=== PATIENT | female | born 1990 | race American Indian/Alaskan Native ===

== ENCOUNTER 2016-05-07 10:27 | Inpatient (IN) | payer MEDICAID ==
[2016-05-07] MEDS ORDERED: BRETHINE IVP PRN (10:31)
[2016-05-07] MEDS ORDERED: SUBLIMAZE IV PRN (10:31)
[2016-05-07] MEDS ORDERED: NARCAN 0.4 MG/1 ML IV PRN (10:31)
[2016-05-07] MEDS ORDERED: ePHEDrine SULFATE IV PRN ×2 (10:31→14:45)
[2016-05-07] MEDS ORDERED: MINERAL OIL PO PRN (10:31)
[2016-05-07] MEDS ORDERED: STADOL IV PRN (10:31)
[2016-05-07] MEDS ORDERED: BRETHINE SUB-Q PRN (10:31)
[2016-05-07] MEDS ORDERED: POLYCILLIN/NS 2 GM/100 ML 2 GM/100 ML BAG IV ONE (10:31)
[2016-05-07] MEDS ORDERED: ZOFRAN IV PRN ×2 (10:31→22:43)
[2016-05-07] MEDS ORDERED: XYLOCAINE 2% INFILTRATI ONE (10:31)
[2016-05-07] MEDS ORDERED: LACTATED RINGERS 1,000 ML IV SCH (11:00)
[2016-05-07] MEDS ORDERED: PITOCin/NS 30 UNIT/500ML 30 UNIT/500 ML BAG IV SCH (11:00)
[2016-05-07] MEDS ORDERED: PITOCin/NS 20 UNIT/1000ML DRIP 20 UNIT/1,000 ML BAG IV SCH ×2 (11:00→22:43)
[2016-05-07 13:14] LABS: Hematocrit 28.7 % (30.3-42.9); Hemoglobin 8.9 gm/dl (10.1-14.3); Mean Corpuscular HGB Conc 31 % (30-34); Mean Corpuscular Volume 83 fl (79-97); Platelet Count 171 K/mm3 (140-440); Red Blood Count 3.48 M/mm3 (3.65-5.03); Red Cell Distribution Width 15.3 % (13.2-15.2); White Blood Count 11.7 K/mm3 (4.5-11.0)
[2016-05-07 13:18] LABS: Mean Corpuscular Hemoglobin 26 pg (28-32)
[2016-05-07] MEDS ORDERED: POLYCILLIN/NS 1 GM/50 ML 1 GM/50 ML BAG IV SCH (14:33)
--- NOTE | 2016-05-07 14:45 | Anesthesia Consultation ---
Anesthesia Consult and Med Hx Date of service: 05/07/16 - Airway Anesthetic Teeth Evaluation: Good ROM Head & Neck: Adequate Mental/Hyoid Distance: Adequate Mallampati Class: Class II Intubation Access Assessment: Probably Good - Pre-Operative Health Status ASA Pre-Surgery Classification: ASA2 Proposed Anesthetic Plan: Epidural, Spinal - Pulmonary Hx Asthma: No - Cardiovascular System Hx Hypertension: No - Central Nervous System Hx Seizures: No Hx Psychiatric Problems: No - Endocrine Hx Renal Disease: No Hx Hypothyroidism: No Hx Hyperthyroidism: No - Hematic Hx Anemia: No Hx Sickle Cell Disease: No - Other Systems Hx Alcohol Use: No
[2016-05-07] MEDS ORDERED: BUPIVACAINE EPIDURAL SCH (15:00)
[2016-05-07] MEDS ORDERED: FENTANYL EPIDURAL SCH (15:00)
[2016-05-07] MEDS ORDERED: XYLOCAINE MPF 2% ONE (17:06)
[2016-05-07] MEDS ORDERED: METHERGINE IM ONE (19:34)
--- NOTE | 2016-05-07 20:06 | History and Physical Report ---
History of Present Illness Date of examination: 05/07/16 Date of admission: 05/07/16 10:30 Chief complaint: my water broke History of present illness: Pt is a 25 year old -[place] female EUN 05/18/16 at 38w3d who presents with leakage of fluid since 930 am- clear. She reports rare contractions and denies vaginal bleeding. She has had care at [facility] since 12 wks complicated by trichomonas (treated with negative test of cure), EIF on anatomy survey and GBS positive status. 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 (treated with negative test of cure ) Family/Genetic History: cancer Social history: no significant social history, single - Obstetrical History Expected Date of Delivery: 05/18/16 Actual Gestation: 38 Week(s) 3 Day(s) : 3 Para: 1 Hx # Term Pregnancies: 1 Number of Pregnancies: 0 Spontaneous Abortions: 0 Induced : 1 Number of Living Children: 1 Medications and Allergies Allergies Allergy/AdvReac Type Severity Reaction Status Date / Time No Known Allergies Allergy Verified 09/08/13 07:23 Home Medications Medication Instructions Recorded Confirmed Last Taken Type Vit No.126/Iron/FA 1 tab PO DAILY 08/19/13 09/08/13 08/25/13 09:00 History [Classic Tablet] Active Meds: Active Medications Butorphanol Tartrate (Stadol) 2 mg IV Q2H PRN PRN Reason: Pain , Severe (7-10) Last Admin: 05/07/16 14:23 Dose: 2 mg Ephedrine Sulfate (Ephedrine Sulfate) 10 mg IV Q2M PRN PRN Reason: Hypotension Stop: 05/08/16 14:44 Last Admin: 05/07/16 15:40 Dose: 10 mg Fentanyl (Sublimaze) 100 mcg IV Q2H PRN PRN Reason: Labor Pain Ampicillin Sodium (Polycillin/Ns 1 Gm/50 Ml) 1 gm in 50 mls @ 100 mls/hr IV Q4HR KENDALL PRN Reason: Protocol Last Admin: 05/07/16 16:52 Dose: 100 mls/hr Lactated Ringer's (Lactated Ringers) 1,000 mls @ 125 mls/hr IV DIRECT KENDALL Last Admin: 05/07/16 11:50 Dose: 125 mls/hr Oxytocin/Sodium Chloride (Pitocin/Ns 20 Unit/1000ml Drip) 20 unit in 1,000 mls @ 125 mls/hr IV DIRECT KENDALL Oxytocin/Sodium Chloride (Pitocin/Ns 30 Unit/500ml) 30 unit in 500 mls @ 4 mls/ hr IV TITR KENDALL PRN Reason: Protocol Last Titration: 05/07/16 17:35 Dose: 12 ml/hr, 12 mls/hr Fentanyl/Bupivacaine/Sodium Chlor (Fentanyl-Bupiv 2 Mcg/Ml-0.125%) 2,000 mcg in 1,000 mls @ 12 mls/hr EPIDURAL TITR KENDALL PRN Reason: Protocol Last Admin: 05/07/16 15:40 Dose: 12 mls/hr Mineral Oil (Mineral Oil) 30 ml PO QHS PRN PRN Reason: Constipation Naloxone HCl (Narcan 0.4 Mg/1 Ml) 0.1 mg IV Q2MIN PRN PRN Reason: Res Rate </= 8 or 02 SAT < 92% Ondansetron HCl (Zofran) 4 mg IV Q8H PRN PRN Reason: Nausea And Vomiting Review of Systems All systems: negative - Vital Signs Vital signs: Vital Signs Pulse Pulse Ox 101 H 98 05/07/16 10:42 05/07/16 10:42 Temp Pulse Resp BP Pulse Ox 98.5 F 105 H 18 111/73 99 05/07/16 18:14 05/07/16 19:52 05/07/16 18:14 05/07/16 19:52 05/07/16 19:32 - Physical Exam Breasts: Positive: deferred Cardiovascular: Regular rate Lungs: Positive: Clear to auscultation Abdomen: Positive: soft (gravid ) Genitourinary (Female): Positive: normal external genitalia Uterus: Positive: enlarged (gravid ) Extremities: Positive: normal - Obstetrical FHR: category 2 Uterine Contraction Monitor Mode: External Cervical Dilatation: 10 Cervical Effacement Percentage: 100 station: -1 Uterine Contraction Pattern: Regular Uterine Tone Measurement Phase: Resting Uterine Contraction Intensity: Moderate Results Result Diagrams: 05/07/16 12:45 Abnormal lab results 05/07/16 Range/Units 12:45 WBC 11.7 H (4.5-11.0) K/mm3 RBC 3.48 L (3.65-5.03) M/mm3 Hgb 8.9 L (10.1-14.3) gm/dl Hct 28.7 L (30.3-42.9) % MCH 26 L (28-32) pg RDW 15.3 H (13.2-15.2) % All other labs normal. Assessment and Plan A: IUP at 38w3d Second Stage Labor GBS positive s/p 2 doses of Ampicillin P: Admit to labor and delivery Routine intrapartum care. Anticipate .
--- NOTE | 2016-05-07 20:10 | Procedure Note ---
OB Delivery Note - Delivery Date of Delivery: 05/07/16 Surgeon: THELMA SILVER Estimated blood loss: other (400 mL) - Vaginal Delivery presentation: vertex Delivery position: OA Intrapartum events: decreased FHT variability, mult.variable deceleratio Delivery induction: oxytocin Delivery augmentation: pitocin Delivery monitor: external FHT, external uterine Route of delivery: Delivery placenta: spontaneous Delivery cord: 3 umbilical vessels Episiotomy: none Delivery laceration: other (Bilateral labial, midline periurethral) Delivery repair: vicryl Anesthesia: epidural Delivery comments: Pt progressed to complete/complete/+1 and pushed to deliver a viable male over intact perineum under epidural anesthesia. Head delivered in TAWANDA position, followed easily by shoulders and body. placed on maternal abdomen and bulb suctioned. Cord clamped and cut. Cord blood collected. Placenta delivered spontaneously (3VC, intact). Vagina and perineum explored, midline periurethral and right labial abrasions noted to be hemostatic. Left labial laceration repaired with two figure of eights of 3-0 Vicryl. Hemostasis noted. EBL 400 mL - A at 1 minute: 8 at 5 minutes: 9 Infant Gender: Male (3381g (7lb 7 oz) @ 1932 PM)
[2016-05-07] MEDS ORDERED: NORCO 5/325 PO PRN (22:43)
[2016-05-07] MEDS ORDERED: MILK OF MAGNESIA PO PRN (22:43)
[2016-05-07] MEDS ORDERED: DULCOLAX PR PRN (22:43)
[2016-05-07] MEDS ORDERED: LANSINOH TP PRN (22:43)
[2016-05-07] MEDS ORDERED: BENADRYL PO PRN (22:43)
[2016-05-07] MEDS ORDERED: TUCKS PAD TP PRN (22:43)
[2016-05-07] MEDS ORDERED: TYLENOL PO PRN (22:43)
[2016-05-07] MEDS ORDERED: SODIUM CHLORIDE FLUSH SYRINGE 10 ML IV NR (22:43)
[2016-05-07] MEDS ORDERED: PHENERGAN PO PRN (22:43)
[2016-05-07] MEDS ORDERED: DERMOPLAST TP PRN (22:43)
[2016-05-07] MEDS ORDERED: PHENERGAN PR PRN (22:43)
[2016-05-07] MEDS: FEOSOL PO SCH (23:09)
[2016-05-08] MEDS ORDERED: MOTRIN PO SCH
[2016-05-08] MEDS ORDERED: BOOSTRIX IM ONE (06:00)
[2016-05-08] MEDS ORDERED: M-M-R II VACCINE SUB-Q ONE (06:05)
[2016-05-08] MEDS ORDERED: MOTRIN PO PRN (06:30)
[2016-05-08 08:27] LABS: Hematocrit 29.3 % (30.3-42.9)
--- NOTE | 2016-05-08 08:42 | Progress Note ---
Assessment and Plan - Patient Problems (1) Active labor at term Current Visit: Yes Status: Acute Plan to address problem: Patient doing well Routine care Subjective - Subjective Date of service: 05/08/16 Interval history: The patient is without any significant complaints. She reports experiencing some difficulty with breast-feeding. Her pain is well-controlled. Her lochia is decreasing Patient reports: appetite normal, voiding normally, pain well controlled [place]: doing well Objective - Vital Signs Latest vital signs: Vital Signs Temp Pulse Pulse Resp BP BP Pulse Ox 05/08/16 04:20 98.2 F 88 20 131/54 05/07/16 23:09 18 05/07/16 23:00 98.2 F 79 20 128/57 05/07/16 20:49 90 117/75 05/07/16 20:34 96 H 119/78 05/07/16 20:19 96 H 129/88 05/07/16 20:04 97 H 116/84 05/07/16 19:52 105 H 111/73 05/07/16 19:40 98.5 F 05/07/16 19:38 114 H 127/60 05/07/16 19:34 115 H 128/60 05/07/16 19:32 137 H 140/69 99 05/07/16 19:29 116 H 119/60 05/07/16 19:27 107 H 116/58 98 05/07/16 19:25 125 H 115/58 05/07/16 19:24 108 H 122/62 05/07/16 19:22 117 H 112/52 93 05/07/16 19:18 112 H 115/67 74 L 05/07/16 19:17 111 H 92 05/07/16 19:16 110 H 127/80 05/07/16 19:13 113 H 128/77 05/07/16 19:12 124 H 100 05/07/16 19:10 117 H 123/73 05/07/16 19:07 124 H 99 05/07/16 19:02 109 H 100 05/07/16 18:59 102 H 122/63 05/07/16 18:57 100 H 100 05/07/16 18:52 109 H 98 05/07/16 18:47 96 H 100 05/07/16 18:41 103 H 91 05/07/16 18:39 104 H 59 L 05/07/16 18:36 106 H 68 L 05/07/16 18:31 95 H 96 05/07/16 18:30 98 H 82 L 05/07/16 18:26 103 H 65 L 05/07/16 18:24 98 H 80 L 05/07/16 18:21 97 H 95 05/07/16 18:18 108 H 92 05/07/16 18:16 98 H 100 05/07/16 18:14 98.5 F 18 05/07/16 18:11 99 H 86 05/07/16 18:06 102 H 100 05/07/16 18:01 97 H 100 05/07/16 17:59 100 H 139/87 05/07/16 17:56 98 H 100 05/07/16 17:51 99 H 100 05/07/16 17:46 98 H 100 05/07/16 17:41 98 H 100 05/07/16 17:36 89 100 05/07/16 17:31 102 H 100 05/07/16 17:26 99 H 100 05/07/16 17:21 94 H 100 05/07/16 17:16 95 H 100 05/07/16 17:12 103 H 91 05/07/16 17:11 86 100 05/07/16 17:06 91 H 100 05/07/16 17:05 94 H 92 05/07/16 17:01 93 H 100 05/07/16 16:59 92 H 134/72 05/07/16 16:56 117 H 82 L 05/07/16 16:51 92 H 100 05/07/16 16:49 99 H 83 L 05/07/16 16:46 86 100 05/07/16 16:41 108 H 85 05/07/16 16:36 88 100 05/07/16 16:31 98 H 100 05/07/16 16:26 92 H 100 05/07/16 16:21 95 H 100 05/07/16 16:16 90 100 05/07/16 16:11 87 100 05/07/16 16:06 88 100 05/07/16 16:01 83 100 05/07/16 15:58 87 123/57 05/07/16 15:56 83 125/57 100 05/07/16 15:54 98 H 127/61 05/07/16 15:52 88 120/56 05/07/16 15:51 85 100 05/07/16 15:50 87 123/57 05/07/16 15:48 95 H 126/59 05/07/16 15:46 88 128/60 100 05/07/16 15:44 92 H 131/61 05/07/16 15:42 87 126/62 05/07/16 15:41 100 H 100 05/07/16 15:40 96 H 125/61 05/07/16 15:38 88 126/60 05/07/16 15:36 90 128/60 98 05/07/16 15:34 96 H 123/58 05/07/16 15:32 91 H 122/56 05/07/16 15:31 91 H 98 05/07/16 15:30 94 H 119/59 05/07/16 15:28 104 H 130/67 05/07/16 15:26 94 H 126/58 99 05/07/16 15:24 92 H 126/61 05/07/16 15:22 91 H 134/62 05/07/16 15:21 125 H 98 05/07/16 15:20 90 131/63 05/07/16 15:18 122/69 05/07/16 15:16 93 H 119/59 97 05/07/16 15:14 92 H 111/56 05/07/16 15:12 100 H 116/58 05/07/16 15:11 102 H 97 05/07/16 15:10 99 H 120/62 05/07/16 15:08 100 H 119/56 05/07/16 15:06 97 H 107/62 98 05/07/16 15:04 107 H 105/58 05/07/16 15:02 101 H 105/51 05/07/16 15:01 104 H 98 05/07/16 15:00 111 H 96/53 05/07/16 14:58 106 H 124/56 05/07/16 14:56 100 H 123/57 96 05/07/16 14:54 99 H 119/53 05/07/16 14:51 97 05/07/16 14:46 99 H 95 05/07/16 14:41 101 H 92 05/07/16 14:36 99 H 96 05/07/16 14:34 93 H 94 05/07/16 14:31 96 H 97 05/07/16 14:28 95 H 94 05/07/16 14:26 98 H 96 05/07/16 14:22 71 L 05/07/16 14:21 104 H 95 05/07/16 14:16 97 H 94 05/07/16 14:03 91 H 98 05/07/16 13:59 97 H 94 05/07/16 13:58 92 H 99 05/07/16 13:54 99 H 84 05/07/16 13:53 99 H 96 05/07/16 13:48 115 H 91 05/07/16 13:47 109 H 92 05/07/16 13:43 94 H 98 05/07/16 13:38 114 H 87 05/07/16 13:36 90 90 05/07/16 13:33 91 H 92 05/07/16 13:31 103 H 90 05/07/16 13:30 97.7 F 18 99 05/07/16 13:28 94 H 98 05/07/16 13:23 90 97 05/07/16 13:18 92 H 98 05/07/16 13:13 97 H 99 05/07/16 13:08 101 H 98 05/07/16 11:51 95 H 98 05/07/16 11:46 91 H 99 05/07/16 11:41 94 H 93 05/07/16 11:36 96 H 97 05/07/16 11:31 102 H 97 05/07/16 11:26 101 H 97 05/07/16 11:21 102 H 97 05/07/16 11:16 98 H 97 05/07/16 11:11 101 H 97 05/07/16 11:06 96 H 98 05/07/16 10:52 98 H 97 05/07/16 10:47 103 H 97 05/07/16 10:43 97.9 F 95 H 104 H 16 123/68 123/68 98 05/07/16 10:42 101 H 98 Intake and Output 05/07/16 05/08/16 05/08/16 22:59 06:59 14:59 Intake Total 650 620 Output Total 400 700 Balance 250 -80 Intake: IV 650 500 PITOCin/NS 20 UNIT/1000ML 150 500 DRIP 20 unit In 1,000 ml @ 125 mls/hr IV DIRECT KENDALL Rx#:[id number] PITOCin/NS 30 UNIT/500ML 500 30 unit In 500 ml @ 4 mls /hr IV TITR [facility], [facility]–1983 Rx#: [id number] Oral 120 Output: Urine 400 700 Indwelling Catheter 400 Void 700 Other: Total, Intake Amount 120 Total, Output Amount 400 700 Estimated Blood Loss 400 - Exam Abdomen: Present: normal appearance Uterus: Present: normal, firm - Labs Labs: Abnormal lab results 05/07/16 05/08/16 Range/Units 12:45 08:04 WBC 11.7 H (4.5-11.0) K/mm3 RBC 3.48 L (3.65-5.03) M/mm3 Hgb 8.9 L 9.0 L (10.1-14.3) gm/dl Hct 28.7 L 29.3 L (30.3-42.9) % MCH 26 L (28-32) pg RDW 15.3 H (13.2-15.2) %
--- NOTE | 2016-05-08 08:43 | Discharge Summary ---
Providers - Providers Date of Admission: 05/07/16 10:30 Date of discharge: 05/09/16 Attending physician: THELMA SILVER 05/07/16 22:43 Consult to Laundry Helper [CONS] Routine Reason For Exam: assistance with , SAURABH 05/08/16 07:46 Consult to Laundry Helper [CONS] Routine Reason For Exam: Primary care physician: THELMA SILVER Hospitalization Reason for admission: active labor, rupture of membranes Delivery: complications: none Discharge diagnosis: IUP at term delivered [place] baby: male Hospital course: The patient was admitted with gross rupture membranes. The patient has successful vaginal delivery. Her course was uneventful. Condition at discharge: Good Disposition: DISCHARGED TO HOME OR SELFCARE - Discharge Diagnoses (1) Active labor at term Status: Acute Plan - Discharge Medications Prescriptions: HYDROcodone/APAP 5-325 [[place] 5/325] 1 each PO Q6HR PRN #30 tablet PRN Reason: Pain Ibuprofen [Motrin] 800 mg PO Q8HR PRN #60 tablet PRN Reason: Pain - Provider Discharge Summary Activity: no sex for 6 weeks, no heavy lifting 4 weeks, no strenuous exercise Diet: routine Instructions: routine Additional instructions: [] Smoking cessation referral if applicable(refer to patient education folder for contact #) [] Refer to [facility] Booklet Call your doctor immediately for: * Fever > 100.5 * Heavy vaginal bleeding ( >1 pad per hour) * Severe persistent headache * Shortness of breath * Reddened, hot, painful area to leg or breast * Drainage or odor from incision. * Keep incision clean and dry at all times and follow doctor's instructions regarding bathing/showering Follow-up 4 weeks - Follow up plan
--- NOTE | 2016-05-08 09:59 | Progress Note ---
Subjective Date of service: 05/08/16 Interval history: 1st day after normal vaginal delivery Patient is in the bed, comfortable. Pain is controlled with pain meds. No residual neurological deficit. No anesthesia complications Objective - Constitutional Vitals: Vital Signs - 12hr 05/07/16 05/07/16 05/08/16 23:00 23:09 04:20 Temperature 98.2 F 98.2 F Pulse Rate [ 79 88 Right From Monitor] Respiratory 20 18 20 Rate Blood Pressure 128/57 131/54 [Right Arm] - Labs CBC & Chem 7: 05/08/16 08:04 Labs: Abnormal lab results 05/07/16 05/08/16 Range/Units 12:45 08:04 WBC 11.7 H (4.5-11.0) K/mm3 RBC 3.48 L (3.65-5.03) M/mm3 Hgb 8.9 L 9.0 L (10.1-14.3) gm/dl Hct 28.7 L 29.3 L (30.3-42.9) % MCH 26 L (28-32) pg RDW 15.3 H (13.2-15.2) %
[2016-05-08] MEDS: PRENATAL VITAMIN PO SCH (10:21)
[2016-05-08] MEDS: FEOSOL PO SCH ×2 (10:21→22:12)
[2016-05-09] MEDS: FEOSOL PO SCH (10:44)
[2016-05-09] MEDS: PRENATAL VITAMIN PO SCH (10:44)
[2016-05-09 16:28] VITALS: BP 133/79
== END 2016-05-09 18:15 | disposition home or self-care (01) | DRG 775 ==
LOC: TRG 10:27 → LD 10:30 → OB 21:14
PROVIDERS: ADMIT Obstetrics & Gynecology; ATTEND Obstetrics & Gynecology
PROC: 10E0XZZ Delivery of Products of Conception, External Approach (ICD-10-PCS; principal; 2016-05-08)
PROC: 0HQ9XZZ Repair Perineum Skin, External Approach (ICD-10-PCS; 2016-05-08)
DX: O76 Abnormality in fetal heart rate and rhythm complicating labor and delivery (principal); O99.824 Streptococcus B carrier state complicating childbirth; O71.82 Other specified trauma to perineum and vulva; O70.0 First degree perineal laceration during delivery; O99.52 Diseases of the respiratory system complicating childbirth; Z37.0 Single live birth; Z3A.39 39 weeks gestation of pregnancy
CPT/HCPCS: 36415; 85014; 85018; 85027; 86850; 86900; 86901; 99211; G0463; J0290; J0595; J2210; J2590; J7120